=== PATIENT | female | born 1990 | race Caucasian/White ===

== ENCOUNTER 2022-09-22 08:09 | Emergency (ER) | payer BC, MEDICAID, OTHER ==
[~2022-09-22] VITALS: Ht 165.1 cm; Wt 70.3 kg
--- NOTE | 2022-09-22 08:15 | NUR ---
Received pt 32 yrs femal c/o lt lower back pain since yesterday mowing lower extramity no weekness
[2022-09-22] MEDS ORDERED: MORPHINE SULFATE INJ 2 MG/ML DISP.SYRIN IM ONE (09:00)
[2022-09-22] MEDS ORDERED: KETOROLAC TROMETHAMINE INJ 60 MG/2 ML VIAL IM ONE (09:00)
--- NOTE | 2022-09-22 09:00 | NUR ---
LAST MANSTURATION 09/02/22
[2022-09-22] MEDS ORDERED: MORPHINE SULFATE INJ 4 MG/ML DISP.SYRIN ONE (09:10)
[2022-09-22] MEDS ORDERED: KETOROLAC TROMETHAMINE INJ 30 MG/ML VIAL ONE (09:11)
--- NOTE | 2022-09-22 09:50 | NUR ---
(pt. name) ambulatory with a steady gait to from bed telloorated will pain 6/10 when walking
[2022-09-22] MEDS ORDERED: HYDR-3972 PO (10:01)
--- NOTE | 2022-09-22 10:04 | NUR ---
Patient discharged to home in stable condition. Written and verbal after care instructions given. Patient verbalizes understanding of instruction.
[2022-09-22 10:09] VITALS: BP 108/54
== END 2022-09-22 10:09 | disposition home or self-care (01) ==
LOC: ER 08:18
DX: S39.012A Strain of muscle, fascia and tendon of lower back, initial encounter (principal); J45.909 Unspecified asthma, uncomplicated; W01.0XXA Fall on same level from slipping, tripping and stumbling without subsequent striking against object, initial encounter; Y93.89 Activity, other specified; Y92.89 Other specified places as the place of occurrence of the external cause; Y99.8 Other external cause status
CPT/HCPCS: 99284; 96372 ×2; J2270; J1885